=== PATIENT | male | born 1985 | race Hispanic/Latino ===

== ENCOUNTER 2020-09-01 20:25 | Emergency (ER) | payer BC | END 2020-09-01 21:10 | disposition home or self-care (01) | LOC: NAV ERS 20:25 | DX: K62.89 Other specified diseases of anus and rectum (principal); K64.4 Residual hemorrhoidal skin tags; R19.7 Diarrhea, unspecified; I10 Essential (primary) hypertension; K74.60 Unspecified cirrhosis of liver; E10.43 Type 1 diabetes mellitus with diabetic autonomic (poly)neuropathy; K31.84 Gastroparesis; Z21 Asymptomatic human immunodeficiency virus [HIV] infection status; Z79.899 Other long term (current) drug therapy | CPT/HCPCS: 99281 ==

== ENCOUNTER 2020-11-19 02:03 | Emergency (ER) | payer BC, SELFPAY ==
[2020-11-19] MEDS ORDERED: Aspirin Chewable 81 MG TAB ONE (02:24)
[2020-11-19 02:53] LABS: #Basophils 0.1 thou/uL (0.0-0.2); #Lymphocytes 2.9 thou/uL (1.20-3.40); #Monocytes 0.5 thou/uL (0.11-0.59); #Neutrophils 5.7 thou/uL (1.40-6.50); %Basophils 1.1 % (0.0-1.0); %Eosinophils 0.4 % (0.0-10.0); %Lymphocytes 31.6 % (21.0-51.0); %Monocytes 5.1 % (0.0-10.0); %Neutrophils 61.9 % (42.0-75.0); Hemoglobin 15.8 g/dL (14.0-18.0); Mean Corpuscular Hemoglobin 27.2 pg (27.0-31.0); Mean Corpuscular Volume 87.6 fL (78.0-98.0); Mean Platelet Volume 7.2 fL (7.4-10.4); Platelet Count 367 thou/uL (130-400); RBC Distribution Width 11.2 % (11.5-14.5); Red Blood Cell (RBC) Count 5.81 mill/uL (4.70-6.10); White Blood Cell (WBC) Count 9.2 thou/uL (4.8-10.8)
[2020-11-19] MEDS ORDERED: Morphine 4 MG/ML VIAL ONE (02:55)
[2020-11-19] MEDS ORDERED: Ondansetron PF 4 MG/2 ML Vial ONE (02:55)
[2020-11-19 03:08] LABS: ALT (SGPT) 70 U/L (8-55); AST (SGOT) 27 U/L (5-34); Albumin 3.9 g/dL (3.5-5.0); Alkaline Phosphatase 69 U/L (40-110); Anion Gap 14 mmol/L (10-20); BUN (Urea Nitrogen) 20 mg/dL (8.9-20.6); Bilirubin, Total 1.5 mg/dL (0.2-1.2); Calc. Creatinine Clearance 0 mL/min (70-130); Carbon Dioxide 18 mmol/L (22-29); Chloride 98 mmol/L (98-107); Globulin 4.7 g/dL (2.4-3.5); Lipase 142 U/L (8-78); Magnesium 1.8 mg/dL (1.6-2.6); Potassium 3.4 mmol/L (3.5-5.1); Protein, Total 8.6 g/dL (6.0-8.3); Sodium 127 mmol/L (136-145)
[2020-11-19 03:12] LABS: Glucose 710 mg/dL (70-105)
[2020-11-19 06:03] LABS: Bilirubin Negative (Negative); Blood, Urine Negative (Negative); Clarity Clear (Clear); Glucose, Urine (Dipstick) >=1000 mg/dL (Negative); Ketone, Urine Negative (Negative); Leukocyte Negative (Negative); Nitrite Negative (Negative); Protein, Urine (Dipstick) Negative (Neg-Trace); Specific Gravity, Urine 1.015 (1.005-1.030); Urobilinogen 0.2 mg/dL (Less than 2)
== END 2020-11-19 06:14 | disposition short-term general hospital (02) ==
LOC: NAV ERS 02:03
DX: E10.65 Type 1 diabetes mellitus with hyperglycemia (principal); R07.89 Other chest pain; E87.0 Hyperosmolality and hypernatremia; I10 Essential (primary) hypertension; E10.43 Type 1 diabetes mellitus with diabetic autonomic (poly)neuropathy; K31.84 Gastroparesis; Z21 Asymptomatic human immunodeficiency virus [HIV] infection status; Z79.899 Other long term (current) drug therapy
CPT/HCPCS: 71045; 80053; 81003; 82010; 83605; 83690; 83735; 83880; 84484; 85025; 93005; 94760; 96374; 96375; J2270; J2405

== ENCOUNTER 2020-12-26 01:21 | Emergency (ER) | payer BC ==
[2020-12-26] MEDS ORDERED: Penicillin V Potassium 250 MG TAB ONE (01:46)
== END 2020-12-26 01:50 | disposition home or self-care (01) ==
LOC: NAV ER/OP 01:21
DX: J03.90 Acute tonsillitis, unspecified (principal); E10.9 Type 1 diabetes mellitus without complications; I10 Essential (primary) hypertension; B20 Human immunodeficiency virus [HIV] disease; Z79.899 Other long term (current) drug therapy; Z79.4 Long term (current) use of insulin
CPT/HCPCS: 99283

== ENCOUNTER 2021-03-10 14:37 | Emergency (ER) | payer BC ==
[2021-03-10 15:24] LABS: #Basophils 0.1 thou/uL (0.0-0.2); #Eosinphils 0.1 thou/uL (0.0-0.7); #Monocytes 0.3 thou/uL (0.11-0.59); #Neutrophils 2.5 thou/uL (1.40-6.50); %Basophils 1.5 % (0.0-1.0); %Eosinophils 1.7 % (0.0-10.0); %Lymphocytes 40.7 % (21.0-51.0); %Monocytes 6.8 % (0.0-10.0); %Neutrophils 49.3 % (42.0-75.0); Hemoglobin 15.3 g/dL (14.0-18.0); Mean Corpuscular HGB CONC 33.3 g/dL (32.0-36.0); Mean Corpuscular Volume 86.9 fL (78.0-98.0); Mean Platelet Volume 6.9 fL (7.4-10.4); Platelet Count 296 thou/uL (130-400); RBC Distribution Width 12.2 % (11.5-14.5); Red Blood Cell (RBC) Count 5.29 mill/uL (4.70-6.10)
== END 2021-03-10 16:07 | disposition home or self-care (01) ==
LOC: NAV ERS 14:37
DX: S92.531A Displaced fracture of distal phalanx of right lesser toe(s), initial encounter for closed fracture (principal); E10.9 Type 1 diabetes mellitus without complications; I10 Essential (primary) hypertension; Z21 Asymptomatic human immunodeficiency virus [HIV] infection status; Z09 Encounter for follow-up examination after completed treatment for conditions other than malignant neoplasm; Z86.19 Personal history of other infectious and parasitic diseases; Z79.899 Other long term (current) drug therapy; X58.XXXA Exposure to other specified factors, initial encounter
CPT/HCPCS: 85025; 86140

== ENCOUNTER 2021-07-01 16:59 | Emergency (ER) | payer BC, SELFPAY ==
[~2021-07-01 16:59] MED LIST: Iopamidol 370 76% 100 ML VIAL ONE
[2021-07-01] MEDS ORDERED: Clindamycin/D5W 900 mg/50 ml Premix Bag ONE (17:32)
[2021-07-01 18:07] LABS: #Basophils 0.1 thou/uL (0.0-0.2); #Lymphocytes 1.9 thou/uL (1.20-3.40); #Monocytes 0.8 thou/uL (0.11-0.59); #Neutrophils 9.1 thou/uL (1.40-6.50); %Basophils 1.1 % (0.0-1.0); %Eosinophils 0.2 % (0.0-10.0); %Lymphocytes 16.1 % (21.0-51.0); %Monocytes 6.5 % (0.0-10.0); %Neutrophils 76.1 % (42.0-75.0); Hemoglobin 16.3 g/dL (14.0-18.0); Mean Corpuscular HGB CONC 33.6 g/dL (32.0-36.0); Mean Corpuscular Hemoglobin 29.3 pg (27.0-31.0); Mean Corpuscular Volume 87.2 fL (78.0-98.0); Mean Platelet Volume 7.1 fL (7.4-10.4); Platelet Count 307 thou/uL (130-400); RBC Distribution Width 11.1 % (11.5-14.5); Red Blood Cell (RBC) Count 5.56 mill/uL (4.70-6.10)
[2021-07-01 18:09] LABS: Anion Gap 14 mmol/L (10-20); BUN (Urea Nitrogen) 15 mg/dL (8.9-20.6); Calc. Creatinine Clearance 0 mL/min (70-130); Carbon Dioxide 23 mmol/L (22-29); Chloride 97 mmol/L (98-107); Glucose 407 mg/dL (70-105); Potassium 3.7 mmol/L (3.5-5.1); Sodium 130 mmol/L (136-145)
[2021-07-01] MEDS ORDERED: Ondansetron PF 4 MG/2 ML Vial ONE (18:38)
== END 2021-07-01 19:40 | disposition home or self-care (01) ==
LOC: NAV ERS 16:59
DX: J36 Peritonsillar abscess (principal); E10.65 Type 1 diabetes mellitus with hyperglycemia; I10 Essential (primary) hypertension; B20 Human immunodeficiency virus [HIV] disease; Z79.899 Other long term (current) drug therapy
CPT/HCPCS: 70491; 80048; 83605; 85025; 87040; 87081; 87430; 96365; J2405; J3490; Q9967

== ENCOUNTER 2024-01-03 04:58 | Emergency (ER) | payer BC, SELFPAY ==
[2024-01-03] MEDS ORDERED: Clindamycin 150 MG CAP ONE (05:32)
== END 2024-01-03 05:52 | disposition home or self-care (01) ==
LOC: NAV ERS 04:58
DX: S90.425A Blister (nonthermal), left lesser toe(s), initial encounter (principal); H61.23 Impacted cerumen, bilateral; E10.9 Type 1 diabetes mellitus without complications; I10 Essential (primary) hypertension; B20 Human immunodeficiency virus [HIV] disease; F17.290 Nicotine dependence, other tobacco product, uncomplicated; W21.31XA Struck by shoe cleats, initial encounter; Y99.0 Civilian activity done for income or pay
CPT/HCPCS: 99283

== ENCOUNTER 2024-02-24 17:13 | Emergency (ER) | payer OTHER, SELFPAY ==
[2024-02-24] MEDS ORDERED: Ketorolac Tromethamine 60 MG/2 ML VIAL ONE (17:20)
== END 2024-02-24 18:26 | disposition home or self-care (01) ==
LOC: NAV ERS 17:13
DX: S39.012A Strain of muscle, fascia and tendon of lower back, initial encounter (principal); E10.9 Type 1 diabetes mellitus without complications; F17.290 Nicotine dependence, other tobacco product, uncomplicated; B20 Human immunodeficiency virus [HIV] disease; V89.2XXA Person injured in unspecified motor-vehicle accident, traffic, initial encounter
CPT/HCPCS: 72100; 96372; J1885